=== PATIENT | male | born 1960 | race Two or more races ===

== ENCOUNTER 2018-12-26 09:03 | Emergency (ER) | payer OTHER ==
[~2018-12-26] VITALS: Ht 180.3 cm; Wt 94.3 kg
[2018-12-26 09:45] LABS: Basophils # (auto) 0 uL; Basophils % (auto) 0.6 % (0.0-2.0); Eosinophils # (auto) 0.2 uL; Eosinophils % (auto) 3.3 % (0.0-7.0); Hematocrit 47.2 % (41.0-53.0); Hemoglobin 16.5 g/dL (13.5-17.5); Lymphocytes % (auto) 38.8 % (10.0-50.0); Mean Corpuscular Hemoglobin 31.9 pg (28.0-32.0); Mean Corpuscular Hgb Conc. 34.9 g/dL (32.0-36.0); Mean Corpuscular Volume 91.4 fL (80.0-100.0); Monocytes # (auto) 0.3 uL; Monocytes % (auto) 5.8 % (0.0-12.0); Neutrophils # (auto) 2.6 uL; Neutrophils % (auto) 51.5 % (37.0-80.0); Nucleated Red Blood Cells % 0.1 %; Platelet Count (auto) 180 10^3/uL (140-450); Red Blood Cells 5.16 10^6/uL (4.5-5.90); Red Cell Distribution Width 13.4 % (11.8-14.3); White Blood Cell 5.1 10^3/uL (4.4-10.8)
[2018-12-26] MEDS ORDERED: cloNIDine HCL 0.1 MG TAB PO ONE (09:45)
[2018-12-26 10:02] LABS: INR 0.96 (0.9-1.15); Partial Thromboplastin Time 25.3 sec (23.64-32.05)
[2018-12-26 10:04] LABS: Alanine Aminotransferase 31 U/L (16-61); Albumin 3.6 g/dL (3.4-5.0); Anion Gap 6 (5-15); Aspartate Aminotransferase 15 U/L (15-37); BUN/Creatinine Ratio 10.2; Blood Urea Nitrogen 10 mg/dL (7-18); Calcium 8.4 mg/dL (8.5-10.1); Carbon Dioxide 26 mmol/L (21-32); Chloride 102 mmol/L (98-107); GFR African American 101 mL/min; GFR Non-African American 83 mL/min; Glucose 100 mg/dL (74-106); Potassium 4.1 mmol/L (3.5-5.1); Sodium 134 mmol/L (136-145)
[2018-12-26 10:08] LABS: Alkaline Phosphatase 77 U/L (45-117); Bilirubin, Total 0.8 mg/dL (0.2-1.0)
[2018-12-26 11:03] LABS: Urine Bacteria NONE SEEN /hpf (None Seen); Urine Blood Negative /uL (Negative); Urine Specific Gravity 1.004 (1.001-1.035); Urine WBC 1 /hpf (0 - 3)
[2018-12-26 11:41] VITALS: BP 131/93
== END 2018-12-26 12:18 | disposition home or self-care (01) ==
LOC: ER 09:05
DX: I10 Essential (primary) hypertension (principal)
CPT/HCPCS: 36415; 80053; 81001; 84484; 85025; 85610; 85730; 93005

== ENCOUNTER 2019-08-08 21:51 | Inpatient (IN) | payer SELFPAY ==
[~2019-08-08] VITALS: Ht 185.4 cm; Wt 93.2 kg
[2019-08-08] MEDS ORDERED: METOPROLOL TARTRATE 1MG/1ML-5ML VIAL IV ONE (22:00)
[2019-08-08] MEDS ORDERED: ASPirin 81 mg TAB PO ONE (22:00)
[2019-08-08] MEDS ORDERED: HEPARIN 1,000 UNITS/ml 1ML VIAL IV ONE (22:00)
[2019-08-08] MEDS ORDERED: MORPHINE SULFATE 4 MG/ML SYR/VIAL IV ONE (22:00)
[2019-08-08] MEDS ORDERED: ATORVASTATIN 20 MG TAB PO ONE ×2 (22:00)
[2019-08-08] MEDS ORDERED: ONDANSETRON HCL 4 MG/2 ML VIAL ONE (22:03)
[2019-08-08] MEDS ORDERED: MORPHINE SULFATE 4 MG/ML SYR/VIAL ONE (22:03)
[2019-08-08] MEDS ORDERED: TICAGRELOR 90 MG TAB PO ONE (22:15)
[2019-08-08] MEDS ORDERED: IOHEXOL 350 MG/ML 100ML IJ ONE (22:32)
[2019-08-08] MEDS ORDERED: LIDOCAINE 2%HCL (LOCAL ANESTH.) INJ 20ML MDV ONE (22:32)
[2019-08-08 22:38] LABS: Basophils # (auto) 0 10 ^3/uL (0-0.2); Eosinophils # (auto) 0 10 ^3/uL (0-0.8); Monocytes # (auto) 0.2 10 ^3/uL (0-1.3)
[2019-08-08 22:39] LABS: Basophils % (auto) 0.4 % (0.0-2.0); Eosinophils % (auto) 0.2 % (0.0-7.0); Hematocrit 52.1 % (41.0-53.0); Lymphocytes # (auto) 1.5 10 ^3/uL (0.4-5.4); Lymphocytes % (auto) 12.6 % (10.0-50.0); Mean Corpuscular Hemoglobin 31.3 pg (28.0-32.0); Mean Corpuscular Hgb Conc. 34.7 g/dL (32.0-36.0); Mean Corpuscular Volume 90.2 fL (80.0-100.0); Neutrophils # (auto) 10.4 10 ^3/uL (1.6-8.6); Neutrophils % (auto) 84.8 % (37.0-80.0); Nucleated Red Blood Cells % 0.3 %; Platelet Count (auto) 265 10^3/uL (140-450); Red Blood Cells 5.77 10^6/uL (4.5-5.90); Red Cell Distribution Width 13.8 % (11.8-14.3); White Blood Cell 12.2 10^3/uL (4.4-10.8)
[2019-08-08] MEDS ORDERED: ANGIOMAX 250 MG VIAL IV ONE (22:41)
[2019-08-08] MEDS ORDERED: ATROPINE SULF 1 MG/10ml SYR ONE (22:41)
[2019-08-08] MEDS ORDERED: SODIUM CHL 0.9% 50 ML ONE (22:42)
[2019-08-08] MEDS ORDERED: MIDAZOLAM HCL 1MG/1ML-2 ML VIAL ONE (22:42)
[2019-08-08] MEDS ORDERED: fentaNYL CITRATE 100 MCG/2 ML VL ONE (22:42)
[2019-08-08 22:53] LABS: INR 1.01 (0.9-1.15); Partial Thromboplastin Time 27.1 sec (23.64-32.05)
[2019-08-08 22:57] LABS: Albumin 4.4 g/dL (3.4-5.0); Calcium 9.2 mg/dL (8.5-10.1); Magnesium 2.4 mg/dL (1.6-2.6); Potassium 3.8 mmol/L (3.5-5.1)
[2019-08-08 23:02] LABS: Bilirubin, Total 0.9 mg/dL (0.2-1.0); Total Protein 8.7 g/dL (6.4-8.2)
[2019-08-08] MEDS ORDERED: EPTIFIBATIDE INJ (2MG/ML) 10ML VIAL IV ONE ×2 (23:08→23:15)
[2019-08-08] MEDS ORDERED: DOPamine 1600MCG/ML D5W 250 ML IV ONE (23:10)
[2019-08-08] MEDS ORDERED: ADENOSINE 90 MG/30 ML INJ IV ONE (23:25)
[2019-08-08] MEDS ORDERED: ADENOSINE 6 MG/2 ML INJ IV ONE (23:26)
[2019-08-08] MEDS ORDERED: SODIUM CHL 0.9% 500 ML IV ONE (23:45)
[2019-08-08] MEDS ORDERED: MORPHINE SULF INJ 2 MG/ML SYRINGE 1ML IV PRN (23:45)
[2019-08-08] MEDS ORDERED: NITROGLYCERIN 0.4 MG SL TAB SL PRN (23:45)
[2019-08-08] MEDS ORDERED: ASPirin 325 MG TAB ONE (23:46)
[2019-08-09] VITALS (9 sets, daily range): BP systolic 106–147; BP diastolic 72–101
[2019-08-09] MEDS ORDERED: AMIODARONE HCL 200 MG TAB ONE (00:24)
[2019-08-09] MEDS ORDERED: MORPHINE SULF INJ 2 MG/ML SYRINGE 1ML IV PRN (00:30)
[2019-08-09] MEDS ORDERED: ACETAMINOPHEN 500 MG TAB PO PRN (00:30)
[2019-08-09] MEDS ORDERED: NITROGLYCERIN 0.4 MG SL TAB SL PRN (00:30)
[2019-08-09] MEDS ORDERED: AMIODARONE HCL 200 MG TAB PO ONE (00:30)
[2019-08-09] MEDS ORDERED: HYDROcodone-ACET 5/325MG TAB PO PRN (00:30)
--- NOTE | 2019-08-09 01:00 | NUR ---
Telemetry admit from [facility] admitted to Telemetry unit after SBAR received. Patient oriented to TERRI BHATTI RN primary RN, unit, room, bed, and unit policies regarding patient care and visiting hours. Patient now on continuous telemetry monitoring, tele box # [id number] and telemetry reading on arrival to unit is Sinus Rhythm at 95BPM. Patient placed on bedside oxygen, weighed by bedscale and encouraged to call if they need something. All questions and concerns addressed, patient verbalized understanding. Patient is S/P LHC. Alert and oriented, flat in bed for another 1.5 hours, no c/o pain, on 2LNC saturating at 96%, access site to right groin is clean dry and intact, no hematoma or bruising noted. Will monitor.
[2019-08-09] MEDS ORDERED: LISI-275 PO (03:15)
[2019-08-09 06:24] LABS: Basophils # (auto) 0 10 ^3/uL (0-0.2); Basophils % (auto) 0.2 % (0.0-2.0); Eosinophils # (auto) 0 10 ^3/uL (0-0.8); Eosinophils % (auto) 0.1 % (0.0-7.0); Hematocrit 46.2 % (41.0-53.0); Lymphocytes # (auto) 1.7 10 ^3/uL (0.4-5.4); Lymphocytes % (auto) 13.9 % (10.0-50.0); Mean Corpuscular Hemoglobin 31.2 pg (28.0-32.0); Mean Corpuscular Hgb Conc. 34.5 g/dL (32.0-36.0); Mean Corpuscular Volume 90.4 fL (80.0-100.0); Monocytes # (auto) 0.6 10 ^3/uL (0-1.3); Monocytes % (auto) 4.6 % (0.0-12.0); Neutrophils # (auto) 9.9 10 ^3/uL (1.6-8.6); Neutrophils % (auto) 81.2 % (37.0-80.0); Nucleated Red Blood Cells % 0.1 %; Platelet Count (auto) 227 10^3/uL (140-450); Red Blood Cells 5.11 10^6/uL (4.5-5.90); Red Cell Distribution Width 13.8 % (11.8-14.3); White Blood Cell 12.1 10^3/uL (4.4-10.8)
[2019-08-09 06:50] LABS: Albumin 3.5 g/dL (3.4-5.0); Calcium 8.5 mg/dL (8.5-10.1); Potassium 4.1 mmol/L (3.5-5.1)
[2019-08-09 07:06] LABS: BUN/Creatinine Ratio 11.8; Bilirubin, Total 1.1 mg/dL (0.2-1.0); Magnesium 2.5 mg/dL (1.6-2.6); Total Protein 6.7 g/dL (6.4-8.2)
[2019-08-09] MEDS: SODIUM CHLOR 0.9% PF (SALINE LOCK) 10ML VIAL/SYR IV SCH ×3 (07:58→22:00)
--- NOTE | 2019-08-09 08:30 | NUR ---
Latest Troponin-285.500, patient complained of a little soreness on the chest. Left a message to Dr. Espinal. Waiting for call back.
--- NOTE | 2019-08-09 08:45 | NUR ---
Received a call from Dr. Espinal, updated on the current status of patient. No new orders received. Will continue to monitor.
[2019-08-09] MEDS: TICAGRELOR 90 MG TAB PO SCH ×2 (09:42→22:00)
[2019-08-09] MEDS: PANTOPRAZOLE 40 MG/10 ML VIAL INJ IV SCH (09:42)
[2019-08-09] MEDS: AMIODARONE HCL 200 MG TAB PO SCH (09:43)
[2019-08-09] MEDS: ASPirin-EC 81 mg tab PO SCH (09:43)
[2019-08-09] MEDS ORDERED: OPTISON 3ml Vial for INJ IV ONE (14:02)
[2019-08-09] MEDS ORDERED: ATOR10TA PO (14:41)
[2019-08-09] MEDS ORDERED: OMEG100078 PO (14:41)
[2019-08-09] MEDS ORDERED: LISI10TA6 PO (14:43)
[2019-08-09] MEDS ORDERED: AMLO5TAB15 PO (14:44)
[2019-08-09] MEDS ORDERED: IPRATROPIUM BROM 0.5 MG/2.5ML INH SOL NEB PRN (15:15)
[2019-08-09] MEDS ORDERED: ALBUTEROL SULF 2.5 MG/0.5ML(0.5%) NEB SOLN NEB PRN (15:15)
--- NOTE | 2019-08-09 19:00 | NUR ---
Opening Shift Note Assumed care of patient, awake and alert. Patient in the lowest possible position with bed rails up x2 and call light within reach. No S/S of distress/SOB or pain at this time. Instructed patient if he has pain in his chest or SOB for medication and treatment as needed. Instructed on POC and to call for assist PRN, will continue to monitor for changes Q1hr and PRN.
[2019-08-09] MEDS ORDERED: ATORVASTATIN 20 MG TAB PO SCH (22:00)
--- NOTE | 2019-08-09 23:15 | NUR ---
Troponin levels called in from lab with a critical value Levels trending down to 80.8. Dr. Espinal aware of high troponin levels, patient had previous heart attack and left heart cath. Previous values as follows- 285 and 112. Will continue to monitor patient.
[2019-08-10 05:00] VITALS: BP 105/69
[2019-08-10] MEDS: SODIUM CHLOR 0.9% PF (SALINE LOCK) 10ML VIAL/SYR IV SCH ×2 (06:00→14:02)
[2019-08-10 06:06] LABS: Basophils # (auto) 0 10 ^3/uL (0-0.2); Basophils % (auto) 0.3 % (0.0-2.0); Eosinophils # (auto) 0 10 ^3/uL (0-0.8); Eosinophils % (auto) 0.3 % (0.0-7.0); Hematocrit 47.1 % (41.0-53.0); Hemoglobin 16.6 g/dL (13.5-17.5); Lymphocytes # (auto) 1.7 10 ^3/uL (0.4-5.4); Mean Corpuscular Hemoglobin 31.5 pg (28.0-32.0); Mean Corpuscular Hgb Conc. 35.2 g/dL (32.0-36.0); Mean Corpuscular Volume 89.7 fL (80.0-100.0); Monocytes # (auto) 0.8 10 ^3/uL (0-1.3); Monocytes % (auto) 8.1 % (0.0-12.0); Neutrophils % (auto) 73.3 % (37.0-80.0); Nucleated Red Blood Cells % 0.3 %; Platelet Count (auto) 210 10^3/uL (140-450); Red Blood Cells 5.25 10^6/uL (4.5-5.90); Red Cell Distribution Width 13.9 % (11.8-14.3); White Blood Cell 9.5 10^3/uL (4.4-10.8)
[2019-08-10 06:15] LABS: Potassium 3.6 mmol/L (3.5-5.1)
[2019-08-10 06:19] LABS: Albumin 3.3 g/dL (3.4-5.0); Calcium 8.2 mg/dL (8.5-10.1); Magnesium 2.4 mg/dL (1.6-2.6)
[2019-08-10 06:46] LABS: Bilirubin, Total 2.2 mg/dL (0.2-1.0); Total Protein 7.1 g/dL (6.4-8.2)
--- NOTE | 2019-08-10 07:25 | NUR ---
Critical lab called for troponin. Levels stated at 60.3. Levels trending down. aware.
[2019-08-10 09:00] VITALS: BP 104/71
[2019-08-10] MEDS: TICAGRELOR 90 MG TAB PO SCH (09:17)
[2019-08-10] MEDS: PANTOPRAZOLE 40 MG/10 ML VIAL INJ IV SCH (09:17)
[2019-08-10] MEDS: ASPirin-EC 81 mg tab PO SCH (09:17)
[2019-08-10] MEDS: AMIODARONE HCL 200 MG TAB PO SCH (09:18)
--- NOTE | 2019-08-10 09:25 | NUR ---
PT ASSESSED FOR PRN HHN TX. PT IS ON ROOM AIR, SPO2 95%, HR 54, RR 18. NO S/S OF RESPIRATORY DISTRESS. PT AWARE TO HAVE RT PAGED IF TX INDICATED. WILL CONTINUE TO MONITOR.
--- NOTE | 2019-08-10 10:11 | NUR ---
DOCTOR AT BEDSIDE DISCUSSING POC.
--- NOTE | 2019-08-10 12:45 | NUR ---
SPOKE WITH DOCTOR MERVIN PER MD PATIENT IS CLEARED FROM CARDIO STAND POINT,PATIENT OKAY TO BE D/C AND PATIENT TO FOLLOW UP IN ONE WEEK WITH MD AT CLINIC.
[2019-08-10 13:00] VITALS: BP 106/61
--- NOTE | 2019-08-10 13:12 | NUR ---
ss consult Per consult patient has no PCP. Maisha Massey to see patient for PCP. Addendum: 08/10/19 at 1313 by Maisha REHMAN Amended: Links added.
[2019-08-10] MEDS ORDERED: PANT40TA2 PO (14:51)
[2019-08-10] MEDS ORDERED: CLOP75TA28 PO (14:51)
[2019-08-10] MEDS ORDERED: ATOR20TA50 PO (14:51)
[2019-08-10] MEDS ORDERED: ASP81EC PO (14:51)
[2019-08-10] MEDS ORDERED: LISI2.5T47 PO (14:55)
[2019-08-10 17:00] VITALS: BP 121/87
--- NOTE | 2019-08-10 17:18 | NUR ---
Discharge instructions given as ordered. Encourage to follow up with PMD as instructed. All questions and concerns addressed. Patient verbalized understanding. Medication reconciliation form completed and copy given to patient. No home medications held in Pharmacy and none returned to patient, and no needed vaccines given. IV removed with catheter intact, pressure dressing applied. Telemetry unit returned to ICU. Patient taken to vehicle via wheelchair with all personal belongings, accompanied by staff. Family member waiting in front lobby for transportation. No distress noted at time of departure.
[2019-08-13 09:28] LABS: Hepatitis B Surface Antibody Negative
[2019-08-13 10:02] LABS: Hepatitis A Total Antibody Negative
[2019-08-13 11:15] LABS: Hepatitis B Surface Antigen Negative (Negative)
[2019-08-13 11:16] LABS: Hepatitis B Core Total AB Negative; Hepatitis C Antibody Negative (Negative)
== END 2019-08-10 17:18 | disposition home or self-care (01) | DRG 246 ==
LOC: ER 21:52 → TELE-WESTW 21:53 → ER 22:36
PROVIDERS: ADMIT Nurse Practitioner; ATTEND Internal Medicine
PROC: 027035Z Dilation of Coronary Artery, One Artery with Two Drug-eluting Intraluminal Devices, Percutaneous Approach (ICD-10-PCS; principal; 2019-08-08)
PROC: 3E073PZ Introduction of Platelet Inhibitor into Coronary Artery, Percutaneous Approach (ICD-10-PCS; 2019-08-08)
PROC: 4A023N7 Measurement of Cardiac Sampling and Pressure, Left Heart, Percutaneous Approach (ICD-10-PCS; 2019-08-08)
PROC: B2111ZZ Fluoroscopy of Multiple Coronary Arteries using Low Osmolar Contrast (ICD-10-PCS; 2019-08-08)
PROC: B2151ZZ Fluoroscopy of Left Heart using Low Osmolar Contrast (ICD-10-PCS; 2019-08-08)
DX: I21.09 ST elevation (STEMI) myocardial infarction involving other coronary artery of anterior wall (principal); J96.00 Acute respiratory failure, unspecified whether with hypoxia or hypercapnia; I50.41 Acute combined systolic (congestive) and diastolic (congestive) heart failure; R65.10 Systemic inflammatory response syndrome (SIRS) of non-infectious origin without acute organ dysfunction; I25.10 Atherosclerotic heart disease of native coronary artery without angina pectoris; I11.0 Hypertensive heart disease with heart failure; K70.9 Alcoholic liver disease, unspecified; F10.10 Alcohol abuse, uncomplicated; E78.5 Hyperlipidemia, unspecified; K80.20 Calculus of gallbladder without cholecystitis without obstruction; J44.9 Chronic obstructive pulmonary disease, unspecified; Z82.49 Family history of ischemic heart disease and other diseases of the circulatory system; Z87.891 Personal history of nicotine dependence; Z98.61 Coronary angioplasty status
CPT/HCPCS: 36415; 71045; 76705; 80053; 80061; 83036; 83735; 83880; 84484; 85025; 85610; 85730; 86704; 86706; 86708; 86803; 87340; 93005; 93306; 94640; 99152; C1874; C9113; G0378; J0153; J2250; J2405; Q9956